=== PATIENT | female | born 1980 | race Caucasian/White ===

== ENCOUNTER 2017-05-31 23:37 | Emergency (ER) | payer OTHER ==
[~2017-05-31] VITALS: Ht 162.6 cm; Wt 60.3 kg
[~2017-05-31 23:37] MED LIST: I-PRIN200 MG; NORCO 5-325 TA1 EACH PO; PENICILLIN VK500 M1 PO
[2017-05-31 23:41] VITALS: BP 132/87
[2017-05-31] MEDS ORDERED: VITAMIN B-12500 MCG PO (23:51)
[2017-05-31] MEDS ORDERED: TUMS PO (23:51)
[2017-05-31] MEDS ORDERED: AMOXICILLIN 50500 M1 PO (23:57)
== END 2017-06-01 00:10 | disposition home or self-care (01) ==
LOC: ER 23:37
DX: K08.89 Other specified disorders of teeth and supporting structures (principal); F17.210 Nicotine dependence, cigarettes, uncomplicated; F10.99 Alcohol use, unspecified with unspecified alcohol-induced disorder